=== PATIENT | male | born 1975 | race Caucasian/White ===

== ENCOUNTER 2021-10-12 06:51 | Day surgery (SDC) | payer BC ==
[~2021-10-12] VITALS: Ht 177.8 cm; Wt 136.1 kg
[~2021-10-12 06:51] MED LIST: MULTI VITAMIN1 EACH PO
[2021-10-12] MEDS ORDERED: NORCO5 PO (10:23)
--- NOTE | 2021-10-14 10:49 | O ---
[facility] [place] [address] OPERATIVE REPORT Name: NILS JAUREGUI Room #: DEP [facility]#: [id number] Admission: 10/12/21 Attend Phys: Nils Garcia MD Discharge: 10/12/21 Date of : 73 Report #: [id number] THIS REPORT FOR: cc: NADIA - Family physician unknown FAM - Family physician unknown Nils Garcia MD ~ DATE OF SERVICE: 10/12/2021 PREOPERATIVE DIAGNOSIS: Right knee posterior horn medial meniscus tear. POSTOPERATIVE DIAGNOSES: 1. Right knee posterior horn medial meniscus tear. 2. Grade 3 chondromalacia of medial femoral condyle. 3. 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 PROCEDURES: 1. Right knee arthroscopy with partial medial meniscectomy. 2. Chondroplasty of medial femoral condyle. SURGEON: Nils Garcia MD ASSISTANT MANAGER RETAIL: Jasmina Hernández PA-C. ANESTHESIA: LMA. TOURNIQUET TIME: 15 minutes. COMPLICATIONS: None. SPECIMENS: None. CONDITION UPON LEAVING THE OR: Stable. INDICATIONS FOR PROCEDURE: The patient is a 46-year-old gentleman with medial-sided right knee pain. He had an MRI scan, found to have a tear of the posterior horn of the medial meniscus as well as chondromalacia of his medial compartment of his knee. After discussion with him, he elected for right knee arthroscopy with partial medial meniscectomy and debridement if needed. DESCRIPTION OF PROCEDURE: Risks, benefits, alternatives, and complications were discussed in detail with the patient including, but not limited to, risk of anesthesia, risk of damage to nerves, arteries, blood vessels, risk for infection, bleeding, risk for continued knee pain, need for reoperation. Informed consent was obtained from the patient. Right knee was appropriately marked in the preoperative holding area. IV Ancef was given for preoperative antibiotics. He was brought to the operating room and placed in supine position [address] [address] OPERATIVE REPORT Name: NILS JAUREGUI [id number] Admission: 10/12/21 Attend Phys: Nils Garcia MD Discharge: 10/12/21 Date of : 73 Report #: [id number] on the operating room table. LMA anesthesia was induced without complication. Tourniquet was placed on the right thigh. Right lower extremity was prepped and draped in normal sterile fashion. Timeout was performed properly identifying the patient and procedure as well as the instrumentation and all in the operating room were in agreement. Right lower extremity was exsanguinated, tourniquet was inflated. Tourniquet time was 15 minutes. A standard anterolateral portal was established with 11 blade through the skin. Arthroscope was introduced into the patellofemoral compartment, diagnostic arthroscopy was undertaken. Patellofemoral compartment was visualized and found to have grade 2 chondromalacia of the apex of the patella. Medial gutter was visualized and found to be without pathology. Medial compartment was visualized and medial portal was established under arthroscopic visualization. Probe was introduced in the medial compartment and there was noted to be a root tear of the posterior horn of the medial meniscus. This was trimmed back and smoothed back with oscillating shaver. In addition, there was noted to be grade 3 chondromalacia of the medial femoral condyle with several unstable cartilaginous flaps. Chondroplasty of this area was performed with oscillating shaver. Notch was visualized and found to have an intact anterior cruciate ligament. Lateral compartment was visualized and found to have an intact lateral meniscus as well as articular cartilage. Scope was placed back in the patellofemoral compartment and there was noted to be grade 3 chondromalacia of the trochlear groove. Chondroplasty of this area was performed with oscillating shaver. All fluid was allowed to drain from the knee. Knee was injected with 10 mL of 0.5% Marcaine. Incision was closed with 3-0 nylon. Soft dressing of Xeroform, 4 x 4, Webril, Abraham wrap were applied. The patient tolerated this procedure well and went to recovery room under care of anesthesia postoperatively. <ELECTRONICALLY SIGNED> By: Nils Garcia MD 10/14/21 [id number] Nils Garcia MD /nt
== END 2021-10-12 11:40 | disposition home or self-care (01) ==
LOC: OR 06:51 → TBA 06:51 → OR 08:55
PROVIDERS: ATTEND Orthopaedic Surgery
DX: M25.561 Pain in right knee (principal); M23.221 Derangement of posterior horn of medial meniscus due to old tear or injury, right knee; M94.261 Chondromalacia, right knee; G47.30 Sleep apnea, unspecified; Z98.890 Other specified postprocedural states; Z79.899 Other long term (current) drug therapy; Z20.822 Contact with and (suspected) exposure to COVID-19; Z90.49 Acquired absence of other specified parts of digestive tract
CPT/HCPCS: 50010; 50101; 50405; 56526; 57103; 57181; 58577; 58589; 62110; 62900; 70005